=== PATIENT | male | born 1985 | race Asian ===

== ENCOUNTER → 2016-07-28 | Outpatient (CLI) | payer OTHER ==
[2016-07-28 14:38] LABS: BASO % 0.4 %; BASO ABS # 0.03 K/uL (0-0.2); COMPLETE YES; EOS % 5.6 %; IG% 0.3 %; LYMPH % 39.6 %; LYMPH ABS # 2.68 K/uL (1.2-3.4); MEAN CELL VOLUME 87.9 fL (80-100); MEAN CORPUSCULAR HEMOGLOBIN 29.3 pg (25-34); MEAN CORPUSCULAR HGB CONC 33.3 g/dl (32-36); MONO % 5.6 %; NEUT % 48.5 %; PLATELET COUNT 309 K/uL (130-400); RED BLOOD COUNT 5.46 M/uL (4.7-6.1); WHITE BLOOD COUNT 6.77 K/uL (4.8-10.8)
[2016-07-28 15:00] LABS: ALT/SGPT 37 U/L (12-78); BLOOD UREA NITROGEN 10 mg/dl (7-18); BUN/CREATININE RATIO 10.8 (10-20); CALCIUM 9.1 mg/dl (8.5-10.1); CARBON DIOXIDE 26 mmol/L (21-32); CHLORIDE 106 mmol/L (98-107); CREATININE 0.92 mg/dl (0.60-1.40); GLUCOSE 143 mg/dl (70-99); POTASSIUM 3.8 mmol/L (3.5-5.1); SODIUM 142 mmol/L (136-145)
[2016-07-28 15:03] LABS: ALKALINE PHOSPHATASE 97 U/L (45-117); AST/SGOT 17 U/L (15-37)
[2016-08-01 16:46] LABS: AFP TUMOR MARKER SERUM 2.5 NG/ML (<6.1); HEP B QUANT 3591 IU/mL (<20); HEP B QUANT LOG IU/ML 3.56 Log IU/mL (<1.30); LIVER FIBR APOLIPOPROTEIN A-1 129 mg/dL (94-176); LIVER FIBROS ALPHA-2-MACROGLOB 153 mg/dL (106-279); LIVER FIBROSIS GGT 25 U/L (3-70); NECROINFLAMMATION ACT GRADE A0; NECROINFLAMMATION ACT SCORE 0.07
== END | disposition home or self-care (01) ==
LOC: C.LAB1850 13:19
PROVIDERS: ATTEND Internal Medicine Infectious Disease
DX: B18.1 Chronic viral hepatitis B without delta-agent (principal)